=== PATIENT | female | born 1990 | race Two or more races ===

== ENCOUNTER 2021-03-13 18:16 | Emergency (ER) | payer MEDICAID ==
[~2021-03-13] VITALS: Ht 157.5 cm; Wt 97.7 kg
[2021-03-13 22:00] VITALS: BP 132/86
== END 2021-03-14 | disposition home or self-care (01) ==
LOC: EMS 18:18
DX: F41.9 Anxiety disorder, unspecified (principal); I10 Essential (primary) hypertension
CPT/HCPCS: 93005; 99283